=== PATIENT | female | born 1990 | race Caucasian/White ===

== ENCOUNTER 2016-11-29 11:50 | Emergency (ER) | payer MEDICAID, OTHER ==
[~2016-11-29] VITALS: Ht 162.6 cm; Wt 95.9 kg
[2016-11-29 11:52] VITALS: BP 119/78
[2016-11-29] MEDS ORDERED: BENZONATATE 100 MG CAPSULE PO ONE (12:30)
[2016-11-29] MEDS ORDERED: DEXAMETHASONE 4 MG TABLET PO ONE (13:00)
== END 2016-11-29 13:41 | disposition home or self-care (01) ==
LOC: ED 13:20
DX: J02.0 Streptococcal pharyngitis (principal); Z77.22 Contact with and (suspected) exposure to environmental tobacco smoke (acute) (chronic)
CPT/HCPCS: 71020; 99284